=== PATIENT | male | born 1930 | race Caucasian/White ===

== ENCOUNTER 2017-04-12 12:41 | Inpatient (IN) | payer MEDICARE ==
[~2017-04-12] VITALS: Ht 175.3 cm; Wt 61.2 kg
--- NOTE | ~2017-04-12 | HP ---
PATIENT: HUNTER DEWITT MEDICAL RECORD: [id number] ACCOUNT: [id number] LOCATION:D.[id number] : 31 ADMISSION DATE: 04/13/17 HISTORY AND PHYSICAL EXAMINATION CHIEF COMPLAINT: Lacerations of the face and bilateral [place] II type fractures. HISTORY OF PRESENT ILLNESS: The patient fell hitting the pavement lacerating his forehead, nose, had some skin tears to the right hand. His primary care physician is Dr. Londono in [place]. Palpation aggravates. Nothing alleviates. I have discussed the patient with Wolf Dawkins as well as with Dr. Whitley. The patient underwent a CT scan of the brain, which revealed no acute intracranial process. Cervical spine images revealed no acute fracture. CT of the face revealed bilateral Le [place] II fractures. The patient was intoxicated. The history of present illness and the review of systems are from the chart as the patient is a difficult historian, is a poor historian and is intoxicated. Symptoms occurred 1 hour before presentation to the Emergency Room. They came on suddenly. It was a slip and fall, which caused the injury. The pain is of moderate intensity. REVIEW OF SYSTEMS: Unreliable due to the patient's intoxication. PAST MEDICAL AND SURGICAL HISTORY: Hypertension, cardiac disease and colon cancer. SOCIAL HISTORY: Positive for alcohol use. HOME MEDICINES: He is on some type of blood thinner or nerve pill as well as antihypertensive. ALLERGIES: CODEINE. PHYSICAL EXAMINATION: GENERAL: The patient appears acutely ill. Also appears chronically ill. EARS: External ears appear normal. EYES: Extraocular movements are intact. NECK: Trachea is midline. CHEST: No intercostal retractions. PULMONARY: Nonlabored, no stridor. ABDOMEN: No peritonitis with movement. INTEGUMENT: Multiple lacerations as described above. PSYCHIATRIC: Normal affect. NEUROLOGIC: Somewhat confused. Poor historian. There is some evidence of loss of higher cortical function. The patient appears intoxicated. BACK: No thoracic kyphosis. LYMPHATICS: No lymphangitic streaking of the exposed extremities. IMPRESSION: 1. Fall with lacerations to the face. 2. Bilateral [place] II fractures. HISTORY AND PHYSICAL [id number] HUNTER DEWITT PLAN: Admission. ENT consultation. Analgesia. TRANSINT:[id number] Voice Confirmation ID: [id number] DOCUMENT ID: [id number] CC: Dr. Dada HinojosawayEDMUNDO, LILLY ELLISON MD CC: DR. SUZIE LONDONO [id number] DICTATION DATE: 04/13/17 142 HOME SERVICE CONSULTANT: 04/13/17 1623 ADM IN [place] [id number] [place] [address]
[2017-04-12 13:28] LABS: BASOPHILS 0.2 % (0-2); EOSINOPHILS 1.4 % (0-7); HEMATOCRIT 36.3 % (42.0-54.0); HEMOGLOBIN 12.2 g/dL (13.5-17.5); IMMATURE GRANULOCYTES 0.2 % (0-5); LYMPHOCYTES 26.7 % (15-50); MCH 31.9 pg (26.0-34.0); MCHC 33.6 g/dL (31.0-37.0); MEAN PLATELET VOLUME 10.1 fL (7.4-10.4); NEUTROPHILS 65.5 % (40-80); PLATELET COUNT 220 10x3/uL (130-400); RBC 3.82 10x6/uL (4.20-6.10); RDW 14.6 % (11.5-14.5); WBC 5.7 10x3/uL (4.8-10.8)
[2017-04-12 13:42] LABS: APTT 25.1 SECONDS (22.8-39.4); INR 1.33 (0.85-1.17); PROTIME 16.3 SECONDS (11.6-15.0)
[2017-04-12 13:58] LABS: ALBUMIN 3.4 g/dL (3.4-5.0); ALKALINE PHOSPHATASE 58 U/L (46-116); ALT (SGPT) 32 U/L (10-68); CALC OSMOLALITY 278 mosm/kg (275-300); CARBON DIOXIDE 22.1 mmol/L (21.0-32.0); CHLORIDE - SERUM 106 mmol/L (98-107); CREATININE - SERUM 0.9 mg/dL (0.6-1.3); GLUCOSE 113 mg/dL (74-106); POTASSIUM - SERUM 3.9 mmol/L (3.5-5.1); SODIUM 139 mmol/L (136-145); UREA NITROGEN 12 mg/dL (7-18); eGFR NON AFRICAN AMERICAN 85 mL/min (90-120)
[2017-04-12 14:52] LABS: APPEARANCE CLEAR (CLEAR); BILIRUBIN NEGATIVE (NEGATIVE); COLOR YELLOW (YELLOW); GLUCOSE NEGATIVE (NEGATIVE); KETONE NEGATIVE (NEGATIVE); LEUKOCYTE ESTERASE NEGATIVE (NEGATIVE); NITRITE NEGATIVE (NEGATIVE); PROTEIN NEGATIVE (NEGATIVE); UROBILINOGEN NORMAL (NORMAL)
[2017-04-12 14:58] LABS: BACTERIA MODERATE /hpf (NONE SEEN); EPITHELIAL CELLS RARE /hpf (0-5); MUCUS <1+ /lpf (NONE SEEN); RED CELLS - URINE 0-5 /hpf (0-5); WHITE CELLS - URINE OCC /hpf (0-5)
[2017-04-12] MEDS ORDERED: FLOMAX0.4 MG PO (17:31)
[2017-04-12] MEDS ORDERED: LOPRESSOR25 MG PO (17:32)
[2017-04-12] MEDS ORDERED: ELIQUIS5 MG PO (17:32)
[2017-04-12] MEDS ORDERED: PAXIL20 MG PO (17:32)
[2017-04-12] MEDS ORDERED: CORDARONE200 MG PO (17:33)
[2017-04-12] MEDS ORDERED: COMPAZINE5 MG PO (17:33)
[2017-04-12] MEDS ORDERED: EMLA CREAM 30 G30 G1 TOPICAL (17:35)
[2017-04-12 17:50] VITALS: BP 176/90; BMI 19.9
--- NOTE | 2017-04-12 17:50 | NUR ---
RECEIVED TO ROOM 2219 VIA WC FROM ED. A/O X3. DRESSING TO FACE AND RIGHT HAND ARE DRY AND INTACT. SL TO LEFT FOREARM PATENT WITHOUT REDNESS. DENIES NEEDS.
--- NOTE | 2017-04-12 18:15 | NUR ---
HAD LARGE AMOUNT OF BLOODY EMESIS. APPROXIMATELY 300CC. STATED HE FEELS BETTER AFTER EMPTYING OUT HIS STOMACH. DENIES NEEDS.
--- NOTE | 2017-04-12 19:15 | NUR ---
RECEIVED CARE FROM DAY NURSE. PT IN HIGH FOWLERS POSITION. REQUEST SOMETHING FOR PAIN. REPORTS MORPHINE MADE HIS ARM ITCH AND REQUEST SOMETHING ELES. NEW ORDER RECEIVED FROM DR. ELLISON. RUSSELL 1-2 Q4HP. NO OTHER NEEDS VOICED AT THIS TIME. CALL LIGHT AT SIDE.
[2017-04-12 20:00] VITALS: BP 142/73
[2017-04-13] VITALS (10 sets, daily range): BP systolic 115–156; BP diastolic 54–100; Ht 175.3 cm; Wt 61.2 kg
--- NOTE | 2017-04-13 02:00 | NUR ---
PT RESTING IN BED WITH NO DISTRESS. RESPIRATIONS EVEN AND UNLABORED. SIDE RAILS UP X 2. BED LOW. BED ALARM ON. CALL LIGHT IS WITHIN REACH.
--- NOTE | 2017-04-13 03:05 | NUR ---
PT LYING IN BED WITH EYES CLOSED. RESP EVEN AND UNLABORED. CALL LIGHT AT SIDE. IV INFUSING PER ORDER.
--- NOTE | 2017-04-13 07:30 | NUR ---
RECIEVED PT DURING WALKING ROUNDS, PT RESTING IN BED WITH NO COMPLAINTS OF PAIN OR DISCOMFORT AT THIS TIME. ASSESSMENT DONE PER FLOWSHEET. BED IN LOW POSITION AND CALL LIGHT WITHIN REACH. WILL CONTINUE TO MONITOR.
--- NOTE | 2017-04-13 10:15 | NUR ---
PRE-OP MEDICATIONS GIVEN AND PT TAKEN TO SURGERY AT THIS TIME.
--- NOTE | 2017-04-13 18:12 | NUR ---
CALLED AT THIS TIME DUE TO PTS HEART RATE, RECIEVED ORDRES FOR TELEMETRY AND CONSULT CARDIOLOGY. SPOKE WITH DR. THOMAS AND RECIEVED ORDERS FOR BETAPACE BID. BED IN LOW POSITION AND CALL LIGHT WITHIN REACH. WILL CONTINUE TO MONITOR.
--- NOTE | 2017-04-13 19:35 | NUR ---
20 GAUGE IV SITED TO RIGHT FOREARM X2 ATTEMPT. FLUSHES EASY WITH BLOOD RETURN PRESENT. SECURED WITH TAPE AND TEGADERM. IVF INFUSING WITHOUT DIFFICULTY.
--- NOTE | 2017-04-13 20:00 | NUR ---
ASSESSMENT PER FLOWSHEET. MULTIPLE SUTURE LINES NOTED TO FACE AND HEAD AND NOSE AREA. STABILIZER NOTED TO BILATERAL NOSE AREA. SUTURED IN PLACE. DRESSING TO RT ARM C/D/I. O2 ON 2L/M PER NC. HOB UP 40 DEGREES. IV PATENT RT FOREARM OF NS AT 100CC'S/HR. RT UPPER ABDOMEN WITH COLOSTOMY. TELM. SHOWS CAF WITH HR AT 90. SR UP X2 CALL LIGHT WITHIN REACH
--- NOTE | 2017-04-13 21:30 | NUR ---
MEDS GIVEN PER MAR.
--- NOTE | 2017-04-14 | NUR ---
EYES CLOSED RESPIRATIONS WITH EASE AND UNLABORED.
--- NOTE | 2017-04-14 02:30 | NUR ---
EYES CLOSED RESPIRATIONS WITH EASE AND UNLABORED.
[2017-04-14 04:00] VITALS: BP 120/69
--- NOTE | 2017-04-14 04:44 | NUR ---
RESTING QUIETLY DENIES PAIN.
--- NOTE | 2017-04-14 06:44 | NUR ---
RESTIG QUIETLY DENIES NEEDS.
[2017-04-14 08:25] VITALS: BP 136/63
[2017-04-14] MEDS ORDERED: BACTROBAN CREAM15 GM TOPICAL (08:51)
[2017-04-14] MEDS ORDERED: KEFLEX500 MG PO (08:52)
--- NOTE | 2017-04-14 17:54 | NUR ---
IV REMOVED AND PT DISCHARGE VIA WHEELCHAIR TO HOME WITH FAMILY MEMBER.
--- NOTE | 2017-04-16 16:59 | OP ---
PATIENT NAME: HUNTER DEWITT MEDICAL RECORD: [id number] :32 LOCATION:D.MS [id number] ADMISSION DATE:04/13/17 SURGEON: LOBO PENG MD DATE OF OPERATION: 04/13/2017 PREOPERATIVE DIAGNOSES: Extensive facial lacerations, Le Fort II midface fracture with a particularly severe open comminuted nasal fracture. POSTOPERATIVE DIAGNOSES: Extensive facial lacerations, [place] II midface fracture with a particularly severe open comminuted nasal fracture. PROCEDURES: 1. Extensive facial debridement and repair of facial fractures including about 8 cm of laceration of forehead and extensive nasal laceration all the way from the glabella straight down to the nose through and through into the left nostril and most of the skin of the nasal tip was gone with exposed and lacerated lower lateral cartilages and septum. 2. Open reduction and internal plate fixation of Le Fort II midface fracture and placement of buttons for the nasal orbital ethmoid portion of the fracture. SURGEON: Lobo Peng MD ANESTHESIA: General orotracheal. BLOOD LOSS: Less than 20 cc. SPECIMENS: None. NASAL PACKING: None. There were buttons sutured through the nasal dorsum. PLATES: Four separate L-shaped plates on the zygomaticomaxillary buttress and adjacent to the nasal pyriform aperture, 2 plates on each side. They were all 5-hole and 7-hole, 1.5 mm Synthes plates. COMPLICATIONS: None. DISPOSITION: Recovery stable. DESCRIPTION OF PROCEDURE: He was brought to the operating room, placed in supine position, sedated and intubated by anesthesia. First, the face was just cleaned up and was prepped in the usual sterile fashion, then just debrided skin, lots and lots of gravel and small rocks and debris and all of the facial wounds. Forehead, bone and skull were exposed. The nasal bones were exposed and he had a laceration through and through the nasal tip and nostril just full of debris and small rocks and leonel. It has been a longtime debriding skin, removing necrotic tissue, nonviable flaps and all the debris and rinsed the nose out really good. Once that was completed, addressed the Le Forte fracture. The upper gingival buccal sulcus was injected with 1 cc of 1% lidocaine with 1:100,000 epinephrine and a superior gingivobuccal sulcus incision was made with a spatula tip cautery. This was taken down to the bone and then a marinelli periosteal elevator and [place] used to raise up the soft tissue bilaterally, exposing the fractures. He did not have any lower teeth. He had fiber sticks in upper teeth, one was an upper incisor, it was just rodded off below the gumline, portion of the root was sticking up into the wound. This was just removed easily with a [place] removing that completely decayed tooth. That was OPERATIVE REPORT [id number] ESDRASHUNTER Kristin all irrigated with Peridex to clean everything up. The pyriform apertures were identified and there were fractures bilaterally there and fractures of the zygomaticomaxillary buttress bilaterally. I was able to grasp the upper teeth with a Ray-Maria Luisa and just digitally we pulled down the hard palate into position and reduced the fractures. Two 5-hole L-shaped plates were chosen and bent to size, basically mirror image and placed 3 holes with 2 screws on each side of the fracture, those were all drilled with 4 mm drill bit and placed the screws, 6 mm screws adjacent to the fracture and 4 mm on the distal hole on both sides. This held the fracture pretty well in place. The zygomaticomaxillary buttress was then addressed with 7-hole 1.5 mm plates. The fourth hole on the long side was cut off on each side. They were bent into position and holes were drilled and 4 mm screws were placed, 5 screws on both sides, avoiding any tooth roots to the few remaining teeth that he had. I got excellent reduction and then this was again all rinsed with Peridex and the incision was closed with interrupted and running 3-0 Vicryl. Then, the lacerations were addressed. First, everything was reapproximated with subcutaneous interrupted 4-0 and 5-0 Vicryl. In the nostril that was through and through, 5-0 Vicryl was used to suture the mucous membranes inside the nose first and then come out through the layers. Lower lateral cartilages were reapproximated using [id number] 5-0 Vicryl sutures as well to hold the cartilage into place. There was really no skin over the tip of the nose. It has been completely abraded off, so some flaps were elevated to reapproximate the skin there. He had somewhat of a rhinophyma and with a severe laceration superiorly, really limited what could be done to reconstruct the tip of the nose. The nasal bones were completely comminuted. There were some rocks in there that were removed. Once that was completely cleaned up, the incision was closed with interrupted subcutaneous 5-0 Vicryl and the skin was closed with 5-0 Prolene. Really, the entire nasal dorsum was so crushed that a Boies elevator had to be used to pull out the fracture and buttons were cut from plastic and placed on both sides and 2-0 Prolene with a Manolo needle was placed through and through the nose to hold the nasal dorsum in good position. The forehead lacerations were closed all with interrupted subcutaneous 4-0 Vicryl, 3-0 Vicryl and the skin was closed with interrupted and running 5-0 Prolene. There were some deep abrasions as well that were just debrided and cleaned up. Once that was completed, it was cleaned up. Mupirocin ointment was applied to everything. He was awakened, extubated, and transported to recovery in good condition. No complications. TRANSINT:[id number] Voice Confirmation ID: [id number] DOCUMENT ID: [id number] LOBO PENG MD at 1659 CC: [id number] DICTATION DATE: 04/13/17 1354 HISTOLOGY TECHNICIAN: 04/13/17 1531 DIS IN 04/14/17 [facility] [address] [id number]
== END 2017-04-14 17:55 | disposition home or self-care (01) | DRG 132 ==
LOC: OBSVTIME → D.OPS 12:41 → D.ER 12:41 → D.MS 16:36 → OBSVTIME 16:36 → EDSTATUS 04-13 10:15 → D.MS 04-13 14:06
PROVIDERS: Nurse Practitioner Family; Otolaryngology; ADMIT Surgery
PROC: 0NSB04Z Reposition Nasal Bone with Internal Fixation Device, Open Approach (ICD-10-PCS; 2017-04-13)
PROC: 0NSP04Z Reposition Right Orbit with Internal Fixation Device, Open Approach (ICD-10-PCS; 2017-04-13)
PROC: 0NSQ04Z Reposition Left Orbit with Internal Fixation Device, Open Approach (ICD-10-PCS; 2017-04-13)
PROC: 09QK0ZZ Repair Nasal Mucosa and Soft Tissue, Open Approach (ICD-10-PCS; 2017-04-13)
PROC: 0HQ1XZZ Repair Face Skin, External Approach (ICD-10-PCS; 2017-04-13)
PROC: 0NSR04Z Reposition Maxilla with Internal Fixation Device, Open Approach (ICD-10-PCS; principal; 2017-04-13 10:15)
PROC: 0NSS04Z (ICD-10-PCS; 2017-04-13 10:15)
DX: S02.412A LeFort II fracture, initial encounter for closed fracture (principal); S01.82XA Laceration with foreign body of other part of head, initial encounter; S01.22XA Laceration with foreign body of nose, initial encounter; W01.198A Fall on same level from slipping, tripping and stumbling with subsequent striking against other object, initial encounter